=== PATIENT | male | born 1985 | race Caucasian/White ===

== ENCOUNTER 2020-06-18 20:28 | Emergency (ER) | payer SELFPAY ==
[~2020-06-18] VITALS: Ht 185.4 cm; Wt 106.1 kg
[2020-06-18 20:44] VITALS: Ht 185.4 cm; Wt 106.1 kg
[2020-06-19 00:16] VITALS: BP 110/74
== END 2020-06-19 00:16 | disposition home or self-care (01) ==
LOC: ED 20:28
DX: S27.329A Contusion of lung, unspecified, initial encounter (principal); M25.551 Pain in right hip; R07.89 Other chest pain; V49.9XXA Car occupant (driver) (passenger) injured in unspecified traffic accident, initial encounter; Y93.89 Activity, other specified; Y92.89 Other specified places as the place of occurrence of the external cause; Y99.8 Other external cause status